=== PATIENT | female | born 1965 | race Asian ===

== ENCOUNTER → 2017-10-25 | Outpatient (CLI) | payer OTHER | END | disposition home or self-care (01) | LOC: LB 08:57 | DX: R73.09 Other abnormal glucose (principal) ==

== ENCOUNTER → 2019-09-13 | Outpatient (CLI) | payer OTHER | END | disposition home or self-care (01) | LOC: MA 07:24 | PROC: BH02ZZZ Plain Radiography of Bilateral Breasts (ICD-10-PCS; principal; 2019-09-13) | DX: Z12.31 Encounter for screening mammogram for malignant neoplasm of breast (principal) | CPT/HCPCS: 77067 ==

== ENCOUNTER → 2019-10-30 | Outpatient (CLI) | payer OTHER | END | disposition home or self-care (01) | LOC: LB 10:11 | DX: K92.1 Melena (principal) ==

== ENCOUNTER → 2020-05-16 | Outpatient (CLI) | payer OTHER ==
[2020-05-16 08:33] LABS: BASOPHIL % 0.9 % (0-2); PLATELET COUNT 381 x10^3mcL (130-400)
[2020-05-16 08:44] LABS: RED CELL DISTRIBUTION WIDTH 15.6 % (11.5-14.5)
[2020-05-16 08:56] LABS: CHOLESTEROL/HDL RATIO 3.6
== END | disposition home or self-care (01) ==
LOC: LB 08:08
DX: D64.9 Anemia, unspecified (principal); E78.5 Hyperlipidemia, unspecified